=== PATIENT | female | born 1965 | race Caucasian/White ===

== ENCOUNTER 2024-02-22 19:40 | Observation (INO) | payer SELFPAY ==
[2024-02-22] MEDS ORDERED: NALOXONE 0.4 MG/ML 1 ML VIAL IV PRN (19:52)
--- NOTE | 2024-02-22 19:55 | ED ---
Recheck HPI - General Chief Complaint: Abdominal Pain Stated Complaint: Appendicitis Time Seen by Provider: 02/22/24 19:42 Source: patient, RN notes reviewed, old records reviewed Mode of arrival: EMS Limitations: no limitations - History of Present Illness Initial Comments: This is a 58 female accepted in transfer for abdominal pain diagnosis of acute appendicitis. Patient is on antibiotics and will continue pain control for surgical evaluation and management MD Complaint: other (Known diagnosis of appendicitis) -: days(s) Returns Today for: persistent/worsening pain related to initial visit Symptoms Since Prior Visit: worsening pain Associated Symptoms: nausea Treatments Prior to Arrival: Given Antibiotics on, Given Pain Meds on - Related Data Previous Rx's Medication Instructions Recorded Amoxic-Pot Clav 875-125Mg 1 tab PO BID 7 Days #14 tab 02/24/24 [Augmentin 875-125] HYDROcodone/APAP 5-325MG [[place] 1 tab PO Q6HR PRN 3 Days #6 tab 02/24/24 5-325] Allergies Allergy/AdvReac Type Severity Reaction Status Date / Time No Known Allergies Allergy Verified 02/22/24 20:11 Review of Systems ROS Statement: Those systems with pertinent positive or pertinent negative responses have been documented in the HPI. ROS Other: All systems not noted in ROS Statement are negative. Past Medical History Past Medical History: No Reported History History of Any Multi-Drug Resistant Organisms: None Reported Past Surgical History: Cholecystectomy Additional Past Surgical History / Comment(s): Lower back surgery Past Psychological History: No Psychological Hx Reported Smoking Status: Never smoker Past Alcohol Use History: None Reported Past Drug Use History: None Reported General Exam Limitations: no limitations General appearance: alert, in no apparent distress Head exam: Present: atraumatic, normocephalic, normal inspection Eye exam: Present: normal appearance, PERRL, EOMI. Absent: scleral icterus, c onjunctival injection, periorbital swelling ENT exam: Present: normal exam, mucous membranes moist Neck exam: Present: normal inspection. Absent: tenderness, meningismus, lymphadenopathy Respiratory exam: Present: normal lung sounds bilaterally. Absent: respiratory distress, wheezes, rales, rhonchi, stridor Cardiovascular Exam: Present: regular rate, normal rhythm, normal heart sounds. Absent: systolic murmur, diastolic murmur, rubs, gallop, clicks GI/Abdominal exam: Present: soft, normal bowel sounds. Absent: distended, tenderness, guarding, rebound, rigid Extremities exam: Present: normal inspection, full ROM, normal capillary refill. Absent: tenderness, pedal edema, joint swelling, calf tenderness Back exam: Present: normal inspection Neurological exam: Present: alert, oriented X3, CN II-XII intact Psychiatric exam: Present: normal affect, normal mood Skin exam: Present: warm, dry, intact, normal color. Absent: rash Course Vital Signs 02/22/24 02/22/24 19:42 20:48 Temperature 98.9 F 98.8 F Pulse Rate 79 75 Respiratory 18 18 Rate Blood Pressure 151/84 135/78 O2 Sat by Pulse 97 98 Oximetry - Reevaluation(s) Reevaluation #1: 02/22/24 19:54 Medical records reviewed Reevaluation #2: 02/22/24 19:54 Patient symptoms unchanged Reevaluation #3: 02/22/24 19:54 Patient informed of results questions answered Reevaluation #4: Was pt. sent in by a medical professional or institution (Dr. PA, [employer], urgent care, hospital, or residential...) When possible be specific @ -no Did you speak to anyone other than the patient for history (EMS, parent, family, police, friend...)? What history was obtained from this source @ -no Did you review nursing and triage notes (agree or disagree)? Why? @ -agree Are old charts reviewed (outside hosp., previous admission, EMS record, old EKG, old radiological studies, urgent care reports/EKG's, residential records)? Report findings @ -yes Differential Diagnosis (chest pain, altered mental status, abdominal pain women, abdominal pain men, vaginal bleeding, weakness, fever, dyspnea, syncope, hea dache, dizziness, GI bleed, back pain, seizure, CVA, palpatations, mental health, musculoskeletal)? @ -prior EKG interpreted by me (3pts min.). @ -no X-rays interpreted by me (1pt min.). @ -no CT interpreted by me (1pt min.). @ -no U/S interpreted by me (1pt. min.). @ -no What testing was considered but not performed or refused? (CT, X-rays, U/S, labs)? Why? @ -none What meds were considered but not given or refused? Why? @ -none Did you discuss the management of the patient with other professionals (professionals i.e. DrMagalis, PA, [employer], lab, RT, psych nurse, socially responsible investment adviser, livestock broker, teacher, homicide squad commanding officer, correctional counselor/case manager)? Give summary @ -no Was smoking cessation discussed for >3mins.? @ -no Was critical care preformed (if so, how long)? @ -no Were there social determinants of health that impacted care today? How? (Homelessness, low income, unemployed, alcoholism, drug addiction, lantigua sportation, low edu. Level, literacy, decrease access to med. care, alf, rehab)? @ -none Was there de-escalation of care discussed even if they declined (Discuss DNR or withdrawal of care, Hospice)? DNR status @ -no What co-morbidities impacted this encounter? (DM, HTN, Smoking, COPD, CAD, Cancer, CVA, ARF, Chemo, Hep., AIDS, mental health diagnosis, sleep apnea, morbid obesity)? @ -none Was patient admitted / discharged? Hospital course, mention meds given and route, prescriptions, significant lab abnormalities, going to OR and other pertinent info. @ - 58 female to the ER for evaluation of diagnosed appendicitis. Patient placed antibiotics and admitted for further evaluation and management Admitted Undiagnosed new problem with uncertain prognosis? @ -no Drug Therapy requiring intensive monitoring for toxicity (Heparin, Nitro, Insulin, Cardizem)? @ -no Were any procedures done? @ -no Diagnosis/symptom? @ -Acute appendicitis Acute, or Chronic, or Acute on Chronic? @ -Acute Uncomplicated (without systemic symptoms) or Complicated (systemic symptoms)? @ -Complicated Side effects of treatment? @ -no Exacerbation, Progression, or Severe Exacerbation? @ -exacerbation Poses a threat to life or bodily function? How? (Chest pain, [place], [place], pneumonia, PE, COPD, DKA, ARF, appy, cholecystitis, CVA, Diverticulitis, Homicidal, Suicidal, threat to staff... and all critical care pts) @ -yes acute appendicitis - Consultations Consultation #1: Spoke with Dr. Evans who agrees to admit this patient Medical Decision Making - Medical Decision Making 58 female to the ER for evaluation of diagnosed appendicitis. Patient placed antibiotics and admitted for further evaluation and management - Lab Data Result diagrams: 02/23/24 08:49 02/24/24 07:00 - Radiology Data Radiology results: report reviewed (CT positive appendicitis) Disposition Clinical Impression: Abdominal pain, Acute appendicitis Disposition: ADMITTED IP TO THIS [facility] Condition: Stable Is patient prescribed a controlled substance at d/c from ED?: No Time of Disposition: 19:50
[2024-02-22] MEDS: SODIUM CHLORIDE 0.9% 1,000 ML IV SCH (20:41)
[2024-02-22] MEDS: MORPHINE SULFATE 4 MG/ML SYRINGE IV PRN (20:42)
[2024-02-22] MEDS: AMPICILLIN-SULBACTAM 3 GM in SODIUM CHLORIDE 0.9% 100 ML IVPB STA (20:47)
[2024-02-23] MEDS: AMPICILLIN-SULBACTAM 3 GM in SODIUM CHLORIDE 0.9% 100 ML IVPB SCH (04:25)
[2024-02-23 08:39] LABS: Basophils # (A) 0.03 X 10*3/uL (0.00-0.10); Basophils % (A) 0.4 %; Eosinophils # (A) 0.01 X 10*3/uL (0.04-0.35); Eosinophils % (A) 0.1 %; HCT 41.5 % (37.2-46.3); HGB 12.9 g/dL (12.0-15.0); Lymphocytes # (A) 0.82 X 10*3/uL (0.90-5.00); Lymphocytes % (A) 9.8 %; MCH 29.7 pg (27.0-32.0); MCHC 31.1 g/dL (32.0-37.0); MCV 95.4 FL (80.0-97.0); Mean Platelet Volume 9.9 FL (9.5-12.2); Monocytes % (A) 9.6 %; NRBC Per 100 WBC 0 X 10*3/uL (0.00-0.01); Neutrophils # (A) 6.66 X 10*3/uL (1.80-7.70); Neutrophils % (A) 79.7 %; Platelet Count 214 X 10*3/uL (140-440); RBC 4.35 X 10*6/uL (4.10-5.20); RDW 14.1 % (11.5-14.5); WBC 8.35 X 10*3/uL (4.50-10.00)
[2024-02-23 08:52] LABS: ALT 382 U/L (8-44); AST 443 U/L (13-35); Albumin 4.4 g/dL (3.8-4.9); Alkaline Phosphatase 117 U/L (41-126); BUN/Creat Ratio 12.33 Ratio (12.00-20.00); Blood Urea Nitrogen 7.4 mg/dL (9.0-27.0); Calcium 8.9 mg/dL (8.7-10.3); Carbon Dioxide 22.7 mmol/L (21.6-31.8); Chloride 102 mmol/L (96-109); Globulin 2.2 g/dL (1.6-3.3); Glucose 122 mg/dL (70-110); Magnesium 1.9 mg/dL (1.5-2.4); Phosphorus 3.9 mg/dL (2.4-5.1); Potassium 4.1 mmol/L (3.5-5.5); Sodium 137 mmol/L (135-145); Total Protein 6.6 g/dL (6.2-8.2)
[2024-02-23 09:11] LABS: Basophils % (A) 0 %; Eosinophils % (A) 0 %; HCT 41.8 % (34.0-46.0); HGB 13.4 gm/dL (11.4-16.0); Lymphocytes # (A) 1.4 k/uL (1.0-4.8); Lymphocytes % (A) 15 %; MCH 30.5 pg (25.0-35.0); MCHC 32.1 g/dL (31.0-37.0); Mean Platelet Volume 7.4; Monocytes # (A) 0.7 k/uL (0-1.0); Monocytes % (A) 7 %; Neutrophils # (A) 7.1 k/uL (1.3-7.7); Neutrophils % (A) 75 %; Platelet Count 207 k/uL (150-450); RDW 13.9 % (11.5-15.5); WBC 9.4 k/uL (3.8-10.6)
[2024-02-23 09:16] LABS: African American GFR (CKD) >90 (>60 ml/min/1.73 sqM); Anion Gap 6 mmol/L; Blood Urea Nitrogen 8 mg/dL (7-17); Calcium 8.8 mg/dL (8.4-10.2); Carbon Dioxide 25 mmol/L (22-30); Chloride 106 mmol/L (98-107); Glucose 105 mg/dL (74-99); Non-African American GFR(CKD) >90 (>60 ml/min/1.73 sqM); Potassium 3.8 mmol/L (3.5-5.1); Sodium 137 mmol/L (137-145)
--- NOTE | 2024-02-23 12:01 | P.GSHP ---
History of Present Illness H&P Date: 02/23/24 CHIEF COMPLAINT: Abdominal pain HISTORY OF PRESENT ILLNESS: This is a 58-year-old female who presents to the hospital with complaints of right lower quadrant abdominal pain. She initially went to [facility]. They did a CT scan which had been reported acute appendicitis. And she was transferred to [facility] for surgical evaluation. Patient reports right lower quadrant abdominal pain x 3 days. She is felt chilled. She denies any nausea or vomiting. Past surgical history does include a cholecystectomy. She denies any cardiac history. PAST MEDICAL HISTORY: See below PAST SURGICAL HISTORY: See below MEDICATIONS: See below ALLERGIES: See below SOCIAL HISTORY: No illicit drug use. REVIEW OF SYSTEMS: CONSTITUTIONAL: Denies fever or chills. HEENT: Denies blurred vision, vision changes, or eye pain. Denies hemoptysis CARDIOVASCULAR: Denies chest pain or pressure. RESPIRATORY: No shortness of breath. GASTROINTESTINAL: See HPI for pertinent findings HEMATOLOGIC: Denies bleeding disorders. GENITOURINARY: Denies any blood in urine or increased urinary frequency. SKIN: Denies pruitis. Denies rash. PHYSICAL EXAM: VITAL SIGNS: Reviewed GENERAL: Well-developed in no acute distress. HEENT: No sclera icterus. Extraocular movements grossly intact. Moist buccal mucosa. Head is atraumatic, normocephalic. No nasal drainage. ABDOMEN: Soft. Nondistended. Tenderness with palpation to right lower quadrant. NEUROLOGIC: Alert and oriented. Cranial nerves II through XII grossly intact. LABORATORY DATA: WBC 9.4 Hgb 13.4 platelets 207 Sodium 137 potassium 3.8 creatinine 0.50 glucose 105 AST 443 and ALT 382 alk phos 117 IMAGING: ASSESSMENT: 1. Acute appendicitis 2. Right lower quadrant abdominal pain 3. Elevated LFTs. History of cholecystectomy PLAN: -Patient scheduled for laparoscopic appendectomy today with Dr. Walker -Keep patient n.p.o. -Continue IV antibiotics -Continue supportive care Physician Java Mobile Developer note has been reviewed by physician. Signing provider agrees with the documented findings, assessment, and plan of care. I have personally seen and examined the patient, reviewed the WET AND DRY SUGAR BIN OPERATOR /PAs history, exam and MDM and agree with the assessment and plan as written. Based on total visit time, I have performed more than 50% of the visit. As above: Patient with right side abdominal pain and CAT scan showing acute appendicitis. Patient was admitted to my service last night apparently. I was not notified by the ER. Likely would not have changed timing of the surgery and this was discussed with the patient. Options reviewed. Will proceed with laparoscopic, possible open appendectomy at this time. Risks of bleeding, infection, conversion to an open procedure, bladder and bowel injury, abscess, leak, possible need for bowel resection all discussed. She understands and wishes to proceed. Past Medical History Past Medical History: No Reported History History of Any Multi-Drug Resistant Organisms: None Reported Past Surgical History: Back Surgery, Cholecystectomy Additional Past Surgical History / Comment(s): Lower back surgery Past Anesthesia/Blood Transfusion Reactions: No Reported Reaction Additional Past Anesthesia/Blood Transfusion Reaction / Comment(s): Never had a blood transfusion. Past Psychological History: No Psychological Hx Reported Smoking Status: Never smoker Past Alcohol Use History: None Reported Past Drug Use History: None Reported Medications and Allergies Home Medications Medication Instructions Recorded Confirmed Type No Known Home Medications 02/22/24 02/22/24 History Allergies Allergy/AdvReac Type Severity Reaction Status Date / Time No Known Allergies Allergy Verified 02/22/24 20:11 Surgical - Exam Vital Signs Temp Pulse Resp BP Pulse Ox 98.9 F 79 18 151/84 97 02/22/24 19:42 02/22/24 19:42 02/22/24 19:42 02/22/24 19:42 02/22/24 19:42 Results - Labs 02/23/24 08:49 02/23/24 08:49 Abnormal Lab Results - Last 24 Hours (Table) 02/23/24 02/23/24 02/23/24 Range/Units 03:35 03:35 08:49 MCHC 31.1 L (32.0-37.0) g/dL Lymphocytes # 0.82 L (0.90-5.00) X 10*3/uL Eosinophils # 0.01 L (0.04-0.35) X 10*3/uL Anion Gap 12.30 H (4.00-12.00) mmol/L BUN 7.4 L (9.0-27.0) mg/dL Creatinine 0.50 L (0.52-1.04) mg/dL Glucose 122 H 105 H (70-110) mg/dL AST 443 H (13-35) U/L ALT 382 H (8-44) U/L Diabetes panel 02/23/24 02/23/24 Range/Units 03:35 08:49 Sodium 137 137 (135-145) mmol/L Potassium 4.1 3.8 (3.5-5.5) mmol/L Chloride 102 106 (96-109) mmol/L Carbon Dioxide 22.7 25 (21.6-31.8) mmol/L BUN 7.4 L 8 (9.0-27.0) mg/dL Creatinine 0.6 0.50 L (0.6-1.5) mg/dL Glucose 122 H 105 H (70-110) mg/dL Calcium 8.9 8.8 (8.7-10.3) mg/dL AST 443 H (13-35) U/L ALT 382 H (8-44) U/L Alkaline Phosphatase 117 (41-126) U/L Total Protein 6.6 (6.2-8.2) g/dL Albumin 4.4 (3.8-4.9) g/dL Calcium panel 02/23/24 02/23/24 Range/Units 03:35 08:49 Calcium 8.9 8.8 (8.7-10.3) mg/dL Phosphorus 3.9 (2.4-5.1) mg/dL Albumin 4.4 (3.8-4.9) g/dL Pituitary panel 02/23/24 02/23/24 Range/Units 03:35 08:49 Sodium 137 137 (135-145) mmol/L Potassium 4.1 3.8 (3.5-5.5) mmol/L Chloride 102 106 (96-109) mmol/L Carbon Dioxide 22.7 25 (21.6-31.8) mmol/L BUN 7.4 L 8 (9.0-27.0) mg/dL Creatinine 0.6 0.50 L (0.6-1.5) mg/dL Glucose 122 H 105 H (70-110) mg/dL Calcium 8.9 8.8 (8.7-10.3) mg/dL Adrenal panel 02/23/24 02/23/24 Range/Units 03:35 08:49 Sodium 137 137 (135-145) mmol/L Potassium 4.1 3.8 (3.5-5.5) mmol/L Chloride 102 106 (96-109) mmol/L Carbon Dioxide 22.7 25 (21.6-31.8) mmol/L BUN 7.4 L 8 (9.0-27.0) mg/dL Creatinine 0.6 0.50 L (0.6-1.5) mg/dL Glucose 122 H 105 H (70-110) mg/dL Calcium 8.9 8.8 (8.7-10.3) mg/dL Total Bilirubin 1.0 (0.3-1.2) mg/dL AST 443 H (13-35) U/L ALT 382 H (8-44) U/L Alkaline Phosphatase 117 (41-126) U/L Total Protein 6.6 (6.2-8.2) g/dL Albumin 4.4 (3.8-4.9) g/dL
[2024-02-23] MEDS: IV FLUID CONTINUATION 1,000 ML IV ONE (13:00)
[2024-02-23] MEDS: ACETAMINOPHEN TAB 500 MG TAB PO STA (13:06)
[2024-02-23] MEDS: ONDANSETRON 4 MG/2 ML VIAL IVP PRN (13:07)
[2024-02-23] MEDS: DEXAMETHASONE SOD PHOSPHATE 4 MG/ML 1 ML VIAL IVP STA (13:07)
[2024-02-23] MEDS: HEPARIN SODIUM,PORCINE 5,000 UNIT/ML 1 ML VIAL SQ STA (13:07)
[2024-02-23] MEDS ORDERED: KETOROLAC 15 MG/ML 1 ML VIAL ONE (13:50)
[2024-02-23] MEDS ORDERED: MIDAZOLAM 2 MG/2 ML VIAL ONE (13:50)
[2024-02-23] MEDS ORDERED: LIDOCAINE 1% INJ 10MG/ML (20 ML MDV) ONE (13:50)
[2024-02-23] MEDS ORDERED: GLYCOPYRROLATE 0.2 MG/ML 2 ML VIAL ONE (13:50)
[2024-02-23] MEDS ORDERED: NEOSTIGMINE 1 MG/ML 10 ML VIAL ONE (13:50)
[2024-02-23] MEDS ORDERED: fentaNYL (PF) 50 MCG/ML 2 ML AMP ONE (13:50)
[2024-02-23] MEDS ORDERED: PROPOFOL 10 MG/ML 20 ML VIAL IV ONE (13:50)
[2024-02-23] MEDS ORDERED: SUCCINYLCHOLINE CHLORIDE 200 MG/10 ML VIAL IV ONE (13:50)
[2024-02-23] MEDS ORDERED: ROCURONIUM 10 MG/ML (5 ML VIAL) IV ONE (13:50)
[2024-02-23] MEDS: BUPIVACAINE (PF) 0.25% 30 ML VIAL SQ ONE ×2 (14:20)
[2024-02-23] MEDS ORDERED: HYDROmorphone 0.5 MG/0.5 ML SYRINGE IVP PRN (15:12)
[2024-02-23] MEDS ORDERED: ACETAMINOPHEN TAB 325 MG TAB PO PRN (15:12)
[2024-02-23] MEDS ORDERED: HYDROmorphone 1 MG/ML 1 ML SYRINGE IVP PRN (15:12)
[2024-02-23] MEDS ORDERED: traMADol 50 MG TAB PO PRN (15:12)
--- NOTE | 2024-02-23 15:12 | P.OP ---
Date of Procedure: 02/23/24 Procedure(s) Performed: PREOPERATIVE DIAGNOSIS: Acute appendicitis POSTOPERATIVE DIAGNOSIS: Acute gangrenous appendicitis, adhesions PROCEDURE: Laparoscopic appendectomy, laparoscopic lysis of adhesions SURGEON: Aaron EBL: 10 cc ANESTHESIA: General COMPLICATIONS: None OPERATIVE PROCEDURE: The patient was brought and placed on the operating table in the supine position. The patient was placed under general anesthesia. The abdomen was prepped and draped in the usual sterile fashion. A small horizontal supraumbilical incision was made. The fascia was retracted anteriorly with Dinh forceps. The Veress needle was advanced into the peritoneal cavity. The saline drop test was normal. Insufflation took place to 15 mmHg. A 5 mm trocar was then placed. An additional 5 mm suprapubic trocar was placed under direct visualization as well as a 12 mm left lower quadrant trocar under direct visualization. The appendix was inspected. It was acutely inflamed along with gangrenous changes. The appendix was along the right gutter partially retrocecal. The patient had a large amount of adhesions in the right upper quadrant limiting her visualization. These were divided using LigaSure. This was related to the prior open cholecystectomy. The base of the appendix was able to be dissected and divided using a linear blue load 45 mm stapler. The mesoappendix was then divided using LigaSure as well as 12 mm clips. The area was then irrigated. No further purulence or bleeding was seen. The appendix was brought out of the peritoneal cavity through the left lower quadrant trocar site with an Endo Catch bag. A drain was placed through the suprapubic site along the right pelvic gutter. This was sutured in place using a 3-0 silk stitch. The fascia at the 12 mm site was closed using a Caden-Ventura 0 Vicryl stitch. The skin at the remaining 2 sites was closed using 4-0 Monocryl sutures. Skin glue was then applied. DISPOSITION: Stable to recovery room
[2024-02-23] MEDS: HEPARIN SODIUM,PORCINE 5,000 UNIT/ML 1 ML VIAL SQ SCH (16:40)
[2024-02-23] MEDS: KETOROLAC 15 MG/ML 1 ML VIAL IVP SCH (18:00)
--- NOTE | 2024-02-24 10:35 | P.CONS ---
History of Present Illness - History of Present Illness This is a pleasant 58 years old female who presents initially for acute appen dicitis, she underwent laparoscopic cholecystectomy on 02/21, showing acute gangrenous appendicitis s/p appendectomy. Today is postop day #2, she is lying bed comfortable, pain controlled she still have some pain and tenderness on the right side of the abdomen including both upper and lower areas. No fever or chills. Mucositis normal and rest of CBC, BMP is unremarkable Liver enzymes were elevated like AST 4438 and ALT 382 but bilirubin is normal. Review of Systems Review of systems CONSTITUTIONAL: No fever, no malaise, no fatigue. HEENT: No recent visual problems or hearing problems. Denied any sore throat. CARDIOVASCULAR: No orthopnea, PND, no palpitations, no syncope. PULMONARY: No shortness of breath, no cough, no hemoptysis. GASTROINTESTINAL: No diarrhea, no nausea, no vomiting,. Normoactive bowel sounds. NEUROLOGICAL: No headaches, no weakness, no numbness. HEMATOLOGICAL: Denies any bleeding or petechiae. GENITOURINARY: Denies any burning micturition, frequency, or urgency. MUSCULOSKELETAL/RHEUMATOLOGICAL: Denies any joint pain, swelling, or any muscle pain. ENDOCRINE: Denies any polyuria or polydipsia. Past Medical History Past Medical History: No Reported History History of Any Multi-Drug Resistant Organisms: None Reported Past Surgical History: Back Surgery, Cholecystectomy Additional Past Surgical History / Comment(s): Lower back surgery Past Anesthesia/Blood Transfusion Reactions: No Reported Reaction Additional Past Anesthesia/Blood Transfusion Reaction / Comm: Never had a blood transfusion. Past Psychological History: No Psychological Hx Reported Smoking Status: Never smoker Past Alcohol Use History: None Reported Past Drug Use History: None Reported Medications and Allergies Home Medications Medication Instructions Recorded Confirmed Type No Known Home Medications 02/22/24 02/22/24 History Allergies Allergy/AdvReac Type Severity Reaction Status Date / Time No Known Allergies Allergy Verified 02/22/24 20:11 Physical Exam Vitals: Vital Signs Temp Pulse Pulse Resp BP Pulse Ox 02/24/24 08:00 71 16 02/24/24 07:40 99.0 F 73 16 156/93 99 02/24/24 01:03 98.7 F 71 16 147/83 95 02/23/24 18:03 78 18 156/91 94 L 02/23/24 17:33 82 16 144/90 93 L 02/23/24 17:03 81 16 149/92 94 L 02/23/24 16:48 77 18 155/97 94 L 02/23/24 16:33 75 16 153/93 94 L 02/23/24 16:18 98.3 F 71 16 154/93 93 L 02/23/24 15:58 74 16 150/77 94 L 02/23/24 15:43 75 16 158/84 100 02/23/24 15:28 76 16 149/81 99 02/23/24 15:13 97.1 F L 87 16 148/73 97 02/23/24 12:57 97.4 F L 73 18 182/84 96 Intake and Output 02/23/24 02/24/24 02/24/24 22:59 06:59 14:59 Intake Total 0 Output Total 70 50 Balance -70 -50 Intake: IV 0 Output: Drainage 60 50 Lower Abdomen 60 50 Estimated Blood Loss 10 Other: Voiding Method Toilet Toilet # Voids 0 GENERAL: The patient is alert and oriented x3, not in any acute distress. Well developed, well nourished. HEENT: Pupils are round and equally reacting to light. EOMI. No scleral icterus. No conjunctival pallor. Normocephalic, atraumatic. No pharyngeal erythema. No thyromegaly. CARDIOVASCULAR: S1 and S2 present. No murmurs, rubs, or gallops. PULMONARY: Chest is clear to auscultation, no wheezing , no crackles. -ABDOMEN: Soft, right-sided abdominal tenderness, r, nondistended, normoactive bowel sounds. No palpable organomegaly. MUSCULOSKELETAL: No joint swelling or deformity. EXTREMITIES: No cyanosis, clubbing, or pedal edema. NEUROLOGICAL: Gross neurological examination did not reveal any focal deficits. SKIN: No rashes. no petechiae. Results CBC & Chem 7: 02/23/24 08:49 02/23/24 08:49 Assessment and Plan Assessment: Acute appendicitis status post laparoscopic appendectomy on 02/21 Transaminitis Obesity with BMI of 36 Plan: Continue with Unasyn Encourage hydration Monitor liver enzymes, patient informed about this problem she states it happened to her 8 before when she had her cholecystectomy. Patient also referred to GI service as an outpatient with Dr. Gayathri she verbalized understanding acceptance, contact information provided Surgery primary team on the case Resume home medication DVT prophylaxis subcutaneous heparin
[2024-02-24 12:21] LABS: ALT 245 U/L (8-44); AST 105 U/L (13-35); Alkaline Phosphatase 108 U/L (41-126); Blood Urea Nitrogen 8.7 mg/dL (9.0-27.0); Calcium 8.7 mg/dL (8.7-10.3); Carbon Dioxide 23.4 mmol/L (21.6-31.8); Chloride 104 mmol/L (96-109); Globulin 2.1 g/dL (1.6-3.3); Glucose 85 mg/dL (70-110); Potassium 3.8 mmol/L (3.5-5.5); Sodium 139 mmol/L (135-145); Total Bilirubin 0.8 mg/dL (0.3-1.2); Total Protein 6.1 g/dL (6.2-8.2)
--- NOTE | 2024-02-24 15:24 | P.DS ---
Providers Date of admission: 02/22/24 19:53 Expected date of discharge: 02/24/24 Attending physician: Ernesto Walker Consults: 02/23/24 15:16 Consult Physician Routine Consulting Provider: Veronica Gonzales Consult Reason/Comments: med mgmt Do you want consulting provider notified?: Yes Primary care physician: Stated None Hospital Course: Patient underwent laparoscopic appendectomy yesterday for gangrenous appendicitis. Doing well today. Tolerating clear liquid diet. No nausea or vomiting. She has been ambulating in the room. Patient states she would like to possibly go home later today. Will see how the patient tolerates regular food and ambulating in the hallway. Possible discharge later today if doing well. Will send home with 5 days worth of oral antibiotics given the gangrenous changes present. Will remove KEREN drain prior to discharge. Follow-up 1 week. Patient Condition at Discharge: Fair Plan - Discharge Summary New Discharge Prescriptions: No Action No Known Home Medications Discharge Medication List No Known Home Medications 02/22/24 [History] Follow up Appointment(s)/Referral(s): None,Stated [Primary Care Provider] - 1-2 days Patient Instructions/Handouts: Abdominal Pain (ED)
[2024-02-24] MEDS: HYDROcodone/APAP 5-325MG 1 EACH TAB PO PRN (23:06)
[2024-02-25 02:37] VITALS: RESP 16
[2024-02-25 07:26] VITALS: BP 139/86; PULSE 70; TEMP 98.5
--- NOTE | 2024-02-25 14:09 | P.DS ---
Providers Date of admission: 02/22/24 19:53 Expected date of discharge: 02/25/24 Attending physician: Ernesto Walker Consults: 02/23/24 15:16 Consult Physician Routine Consulting Provider: Veronica Gonzales Consult Reason/Comments: med mgmt Do you want consulting provider notified?: Yes Primary care physician: Stated None Hospital Course: Discharge diagnosis 1. Acute gangrenous appendicitis and adhesions Hospital course This is a 58-year-old female who presents to the hospital with complaints of right lower quadrant abdominal pain. Patient was transferred from outside facility. Her CT scan there had reported acute appendicitis. Patient is status post laparoscopic appendectomy and lysis of adhesions. Patient's pain is controlled. She is tolerating diet. She is afebrile. She has been up and ambulating. She is stable for discharge. Please refer to chart for any further details. Physician Cable Respooler note has been reviewed by physician. Signing provider agrees with the documented findings, assessment, and plan of care. Patient Condition at Discharge: Stable Plan - Discharge Summary New Discharge Prescriptions: New Amoxic-Pot Clav 875-125Mg [Augmentin 875-125] 1 tab PO BID 7 Days #14 tab HYDROcodone/APAP 5-325MG [[place] 5-325] 1 tab PO Q6HR PRN 3 Days #6 tab PRN Reason: Analgesia Discharge Medication List Amoxic-Pot Clav 875-125Mg [Augmentin 875-125] 1 tab PO BID 7 Days #14 tab 02/24/24 [Rx] HYDROcodone/APAP 5-325MG [[place] 5-325] 1 tab PO Q6HR PRN 3 Days #6 tab 02/24/24 [Rx] Follow up Appointment(s)/Referral(s): Ernesto Walker MD [Medical Doctor] - 03/04/24 10:10 am None,Stated [Primary Care Provider] - 1-2 days [facility] [NON-STAFF] - 1 Week (we recommend to check your blood tests with your doctor ) Patient Instructions/Handouts: Abdominal Pain (ED) Activity/Diet/Wound Care/Special Instructions: No driving while taking [place]on No lifting over 10 pounds You may shower. No soaking or tub baths for 2 weeks Very light activity until you are reevaluated at your follow up appointment with your surgeon Discharge Disposition: HOME SELF-CARE
--- NOTE | 2024-02-26 06:52 | P.PN ---
Subjective This is a pleasant 58 years old female who presents initially for acute appendicitis, she underwent laparoscopic cholecystectomy on 02/21, showing acute gangrenous appendicitis s/p appendectomy. Today is postop day #2, she is lying bed comfortable, pain controlled she still have some pain and tenderness on the right side of the abdomen including both upper and lower areas. No fever or chills. Mucositis normal and rest of CBC, BMP is unremarkable Liver enzymes were elevated like AST 4438 and ALT 382 but bilirubin is normal. 02/25/2024 Patient is fully awake and oriented, She denies chest pain or dyspnea No abdominal pain no other new complaint Patient seen walking in the hallway with no difficulty. She tolerates diet well. She remains on antibiotic as per surgery team She is hemodynamically stable Patient is medically stable for discharge today but we recommend that she follow-up with PCP in 1 week after discharge, patient was instructed with the same and she told me she would do the follow-up with family at bedside and agree. Objective - Vital Signs Vital signs: Vital Signs Temp 98.5 F 02/25/24 07:00 Pulse 70 02/25/24 08:00 Resp 16 02/25/24 07:00 BP 139/86 02/25/24 07:00 Pulse Ox 98 02/25/24 07:00 FiO2 Intake & Output 02/24/24 02/25/24 02/25/24 18:59 06:59 18:59 Intake Total 118 Output Total 50 55 Balance 68 -55 Intake: Oral 118 Output: Drainage 50 55 Lower Abdomen 50 55 Other: Voiding Method Toilet Toilet Toilet # Voids 3 1 - Exam GENERAL: The patient is alert and oriented x3, not in any acute distress. Well developed, well nourished. HEENT: Pupils are round and equally reacting to light. EOMI. No scleral icterus. No conjunctival pallor. Normocephalic, atraumatic. No pharyngeal erythema. No thyromegaly. CARDIOVASCULAR: S1 and S2 present. No murmurs, rubs, or gallops. PULMONARY: Chest is clear to auscultation, no wheezing , no crackles. ABDOMEN: Soft, nontender, nondistended, normoactive bowel sounds. No palpable organomegaly. MUSCULOSKELETAL: No joint swelling or deformity. EXTREMITIES: No cyanosis, clubbing, or pedal edema. NEUROLOGICAL: Gross neurological examination did not reveal any focal deficits. SKIN: No rashes. no petechiae. - Labs CBC & Chem 7: 02/23/24 08:49 02/24/24 07:00 Labs: Abnormal Lab Results - Last 24 Hours (Table) 02/24/24 Range/Units 07:00 BUN 8.7 L (9.0-27.0) mg/dL AST 105 H (13-35) U/L ALT 245 H (8-44) U/L Total Protein 6.1 L (6.2-8.2) g/dL Assessment and Plan Assessment: Acute appendicitis status post laparoscopic appendectomy on 02/21 Transaminitis Obesity with BMI of 36 Plan: Continue with Unasyn Encourage hydration Monitor liver enzymes, patient informed about this problem she states it happened to her 8 before when she had her cholecystectomy. Patient also referred to GI service as an outpatient with Dr. Trinh she verbalized understanding acceptance, contact information provided Surgery primary team on the case Resume home medication DVT prophylaxis subcutaneous heparin
== END 2024-02-25 12:46 | disposition home or self-care (01) ==
LOC: EC 19:40 → 6NMEDSUR 19:53
PROVIDERS: ADMIT Surgery; ATTEND Surgery
DX: K35.891 Other acute appendicitis without perforation, with gangrene (principal); K66.0 Peritoneal adhesions (postprocedural) (postinfection); R74.01 Elevation of levels of liver transaminase levels; E66.9 Obesity, unspecified; Z68.36 Body mass index [BMI] 36.0-36.9, adult; Z90.49 Acquired absence of other specified parts of digestive tract
CPT/HCPCS: 96376; 96361; 96372 ×3; 96374; 99285; 88304; 80053 ×2; 80048; 83735; 84100; 85025; 44970; G0378 ×4; J2250; J0330; J2270 ×3; J1644 ×3; J1100; J2710; J2405; J2001; J3010; J0295 ×4; J1885 ×3; J2704; J0665; J1596